=== PATIENT | female | born 1940 | race Caucasian/White ===

== ENCOUNTER 2022-01-19 14:13 | Inpatient (IN) | payer MEDICARE ==
[2022-01-19] MEDS ORDERED: Ondansetron ODT 4 MG TAB PO PRN (14:28)
[2022-01-19] MEDS ORDERED: Ondansetron PF 4 MG/2 ML Vial IVP PRN (14:28)
[2022-01-19] MEDS ORDERED: Acetaminophen 650 MG Suppository PR PRN (14:28)
[2022-01-19] MEDS ORDERED: Acetaminophen 325 MG TAB PO PRN (14:28)
[2022-01-19 14:58] VITALS: BMI 28.2
[2022-01-19] MEDS ORDERED: Metoprolol Tartrate 5 MG/5 ML VIAL IVP SCH (15:00)
[2022-01-19] MEDS ORDERED: Diltiazem 125 MG in Sodium Chloride 0.9% 100 ML IVPB SCH (15:30)
[2022-01-19] MEDS ORDERED: Apixaban 5 MG TAB PO SCH (16:00)
[2022-01-19] MEDS: Carvedilol 6.25 MG TAB PO SCH (18:03)
[2022-01-19] MEDS ORDERED: Atorvastatin Calcium 40 MG TAB PO SCH (21:00)
[2022-01-19] MEDS: Apixaban 5 MG TAB PO SCH (21:59)
[2022-01-20 04:20] LABS: #Eosinphils 0.2 10x3/uL (0.0-0.5); #Monocytes 0.7 10x3/uL (0.0-1.1); #Neutrophils 3.5 10x3/uL (1.5-8.4); %Basophils 0.3 % (0.0-2.0); %Eosinophils 2.7 % (0.0-6.0); %Lymphocytes 38.4 % (18.0-47.0); %Monocytes 9.2 % (0.0-10.0); %Neutrophils 49.1 % (40.0-75.0); Hemoglobin 10.1 g/dL (12.0-15.5); Mean Corpuscular HGB CONC 30.2 g/dL (32.0-36.0); Mean Corpuscular Hemoglobin 25.8 pg (27.0-33.0); Mean Corpuscular Volume 85.2 fl (81.6-98.3); Mean Platelet Volume 10.1 fl (7.4-10.4); Platelet Count 218 10x3/uL (150-450); RBC Distribution Width 14.3 % (11.5-14.5); Red Blood Cell (RBC) Count 3.92 10x6/uL (3.90-5.03); White Blood Cell (WBC) Count 7.1 10x3/uL (3.5-10.5)
[2022-01-20 04:42] LABS: Anion Gap 14 mmol/L (10-20); BUN (Urea Nitrogen) 25 mg/dL (9.8-20.1); Calc. Creatinine Clearance 52 mL/min (70-130); Calcium 8.6 mg/dL (7.8-10.44); Carbon Dioxide 21 mmol/L (23-31); Chloride 110 mmol/L (98-107); Estimated GFR 53; Glucose 95 mg/dL (83-110); Magnesium 1.8 mg/dL (1.6-2.6); Potassium 4.4 mmol/L (3.5-5.1); Sodium 141 mmol/L (136-145)
[2022-01-20] MEDS ORDERED: Levothyroxine Sodium 50 MCG TAB PO SCH (06:00)
[2022-01-20] MEDS: Carvedilol 6.25 MG TAB PO SCH (06:10)
[2022-01-20] MEDS: Apixaban 5 MG TAB PO SCH ×2 (06:10→21:16)
[2022-01-20] MEDS: Levothyroxine Sodium 50 MCG TAB PO SCH (06:17)
[2022-01-20] MEDS: Allopurinol 100 MG TAB PO SCH (06:27)
[2022-01-20] MEDS: Atorvastatin Calcium 40 MG TAB PO SCH (06:28)
[2022-01-20] MEDS ORDERED: Magnesium 2 GM/50 ML(in water) 2 GM in Premix Bag 1 BAG IVPB SCH (09:00)
[2022-01-20] MEDS ORDERED: Lisinopril 20 MG TAB PO SCH (09:00)
[2022-01-20] MEDS ORDERED: PROPOFOL 40 ML ONE (10:22)
[2022-01-20] MEDS ORDERED: Lidocaine 1% MPF 2 ML VIAL ONE (10:23)
[2022-01-20] MEDS ORDERED: Phenylephrine 10 MG/ML VIAL ONE (10:23)
[2022-01-20] MEDS ORDERED: ePHEDrine 50 MG/ML VIAL SLOW IVP PRN (11:10)
[2022-01-20] MEDS ORDERED: Sodium Chloride 0.9% 500 ML IV SCH (16:15)
[2022-01-21 04:38] LABS: #Eosinphils 0.1 10x3/uL (0.0-0.5); #Monocytes 0.6 10x3/uL (0.0-1.1); #Neutrophils 3.3 10x3/uL (1.5-8.4); %Basophils 0.2 % (0.0-2.0); %Eosinophils 2.3 % (0.0-6.0); %Lymphocytes 33.9 % (18.0-47.0); %Monocytes 9.4 % (0.0-10.0); %Neutrophils 53.9 % (40.0-75.0); Hemoglobin 9.4 g/dL (12.0-15.5); Mean Corpuscular HGB CONC 30.7 g/dL (32.0-36.0); Mean Corpuscular Hemoglobin 25.7 pg (27.0-33.0); Mean Corpuscular Volume 83.6 fl (81.6-98.3); Platelet Count 190 10x3/uL (150-450); RBC Distribution Width 14.2 % (11.5-14.5); Red Blood Cell (RBC) Count 3.66 10x6/uL (3.90-5.03); White Blood Cell (WBC) Count 6.2 10x3/uL (3.5-10.5)
[2022-01-21 04:46] LABS: Anion Gap 13 mmol/L (10-20); BUN (Urea Nitrogen) 27 mg/dL (9.8-20.1); Calc. Creatinine Clearance 44 mL/min (70-130); Calcium 8.5 mg/dL (7.8-10.44); Carbon Dioxide 19 mmol/L (23-31); Chloride 111 mmol/L (98-107); Estimated GFR 43; Glucose 95 mg/dL (83-110); Potassium 4.2 mmol/L (3.5-5.1); Sodium 139 mmol/L (136-145)
[2022-01-21] MEDS: Levothyroxine Sodium 50 MCG TAB PO SCH (06:03)
[2022-01-21] MEDS: Atorvastatin Calcium 40 MG TAB PO SCH (08:52)
[2022-01-21] MEDS: Allopurinol 100 MG TAB PO SCH (08:52)
[2022-01-21] MEDS: Apixaban 5 MG TAB PO SCH (08:52)
[2022-01-21] MEDS ORDERED: Amlodipine 5 MG TAB PO SCH (09:00)
[2022-01-21] MEDS ORDERED: Lisinopril 10 MG TAB PO SCH (09:00)
[2022-01-21 12:02] VITALS: BP 137/64; TEMP 97.8
== END 2022-01-21 12:00 | disposition home or self-care (01) | DRG 310 ==
LOC: CSHTELE 14:13
PROVIDERS: ADMIT Internal Medicine; ATTEND Family Medicine
PROC: 5A2204Z Restoration of Cardiac Rhythm, Single (ICD-10-PCS; principal; 2022-01-20)
PROC: B24BZZ4 Ultrasonography of Heart with Aorta, Transesophageal (ICD-10-PCS; 2022-01-20)
DX: I48.91 Unspecified atrial fibrillation (principal); Z20.822 Contact with and (suspected) exposure to COVID-19; I25.10 Atherosclerotic heart disease of native coronary artery without angina pectoris; I10 Essential (primary) hypertension; E78.5 Hyperlipidemia, unspecified; Z96.653 Presence of artificial knee joint, bilateral; E03.9 Hypothyroidism, unspecified; M35.3 Polymyalgia rheumatica; J45.909 Unspecified asthma, uncomplicated; I49.5 Sick sinus syndrome; E66.01 Morbid (severe) obesity due to excess calories; Z79.899 Other long term (current) drug therapy; Z79.890 Hormone replacement therapy; Z95.5 Presence of coronary angioplasty implant and graft; Z95.2 Presence of prosthetic heart valve; Z88.6 Allergy status to analgesic agent; Z91.041 Radiographic dye allergy status; Z88.8 Allergy status to other drugs, medicaments and biological substances; Z90.49 Acquired absence of other specified parts of digestive tract; Z68.28 Body mass index [BMI] 28.0-28.9, adult
CPT/HCPCS: 36415; 80048; 83735; 84443; 85025; 92960; 93312; 94760; J2370; J2704; J3475; J3490; J7030

== ENCOUNTER 2023-11-08 08:37 | Outpatient (CLI) | payer MEDICARE ==
[2023-11-08] MEDS ORDERED: Iopamidol 300 61% 100 ML VIAL FS ONE (09:27)
== END 2023-11-08 08:38 | disposition home or self-care (01) ==
LOC: CSHCT 08:37
PROVIDERS: ATTEND Surgery
DX: K43.2 Incisional hernia without obstruction or gangrene (principal); K43.9 Ventral hernia without obstruction or gangrene; N28.1 Cyst of kidney, acquired
CPT/HCPCS: 74177; 82565; Q9967